=== PATIENT | male | born 1950 | race Caucasian/White ===

== ENCOUNTER 2016-06-10 11:25 | Emergency (ER) | payer BC, OTHER ==
[2016-06-10 13:39] VITALS: BP 143/85
--- NOTE | 2016-06-10 14:21 | UC ---
Throat Pain/Nasal Russell HPI - HPI Summary HPI Summary: ONE WEEK OF NASAL CONGESTION AND WORSENING COUGH, COUGHED SO MUCH HE VOMITED ONE TIME THIS MORNING. NO FEVER. - History of Current Complaint Chief Complaint: UCRespiratory Stated Complaint: COUGH Time Seen by Provider: 06/10/16 13:36 Hx Obtained From: Patient Onset/Duration: Gradual Onset, Lasting Weeks, Still Present Severity: Moderate Pain Intensity: 0 Pain Scale Used: 0-10 Numeric Cough: Nonproductive Associated Signs & Symptoms: Positive: Hoarseness, Sinus Discomfort, Nasal Discharge - Epiglottits Risk Factors Epiglottis Risk Factors: Negative - Allergies/Home Medications Allergies/Adverse Reactions: Allergies Allergy/AdvReac Type Severity Reaction Status Date / Time No Known Allergies Allergy Verified 06/10/16 13:32 Home Medications: Home Medications Pseudoephedrine-Guaifenesin [Mucinex D 60-600 mg] 1 tab PO PRN 06/10/16 [History ] PMH/Surg Hx/FS Hx/Imm Hx Previously Healthy: Yes Endocrine History Of: Reports: Thyroid Disease - HX OF HYPERTHYROIDISM - TREATED WITH RADIOACTIVE IODINE TX - NO PROBLEMS Denies: Diabetes Cardiovascular History Of: Reports: Hypertension - CONTROL WITH MEDS Denies: Cardiac Disorders Respiratory History Of: Denies: COPD, Asthma GI/ History Of: Denies: Ulcer - Surgical History Surgical History: Yes Surgery Procedure, Year, and Place: T&A A CHILD. 1972 fourth finger right hand surgery, ODALYS. 2012 UMBILICAL HERNIA REPAIR, YASMIN. Jan 2016 LEFT hand - Family History Known Family History: Positive: Cardiac Disease, Diabetes, Other - osteoarthritis both parents - Social History Occupation: Employed Full-time Lives: With Family Alcohol Use: Daily Alcohol Amount: 3-4 shots of whiskey a day Substance Use Type: None Smoking Status (MU): Never Smoked Tobacco Amount Used/How Often: 1 can every 3 days Length of Time of Smoking/Using Tobacco: started age 31 Have You Smoked in the Last Year: No - Immunization History Most Recent Influenza Vaccination: 2016 Most Recent Tetanus Shot: 07/06/2013 Most Recent Pneumonia Vaccination: NONE Review of Systems Constitutional: Negative Skin: Negative Eyes: Negative ENT: Nasal Discharge Respiratory: Cough Cardiovascular: Negative Gastrointestinal: Negative Genitourinary: Negative Motor: Negative Neurovascular: Negative Musculoskeletal: Negative Neurological: Negative Psychological: Negative All Other Systems Reviewed And Are Negative: Yes Physical Exam Triage Information Reviewed: Yes Appearance: No Pain Distress, Well-Nourished, Ill-Appearing - MILD Vital Signs: Initial Vital Signs Temp 98.5 F 06/10/16 13:33 Pulse 72 06/10/16 13:33 Resp 18 06/10/16 13:33 BP 143/85 06/10/16 13:33 Pulse Ox 100 06/10/16 13:33 Vital Signs Reviewed: Yes Eye Exam: Normal Eyes: Positive: Conjunctiva Clear ENT: Positive: Hearing grossly normal, Pharynx normal, Nasal congestion, TM bulging, TM dull Dental Exam: Normal Neck exam: Normal Neck: Positive: Supple, Nontender, No Lymphadenopathy Respiratory Exam: Other - COUGH Respiratory: Positive: Chest non-tender, Lungs clear, Normal breath sounds, No respiratory distress, No accessory muscle use Cardiovascular Exam: Normal Cardiovascular: Positive: RRR, No Murmur, Pulses Normal Abdominal Exam: Normal Musculoskeletal Exam: Normal Neurological Exam: Normal Psychological Exam: Normal Skin Exam: Normal Throat Pain/Nasal Course/Dx - Differential Dx/Diagnosis Differential Diagnosis/HQI/PQRI: Pharyngitis, Sinusitis, URI Provider Diagnoses: SINUSITIS. BRONCHITIS Discharge - Discharge Plan Condition: Stable Disposition: HOME Prescriptions: Azithromycin TAB* [Zithromax TAB (Z-JOSESITO) 250 mg #6 tabs] 250 mg PO DAILY #6 tab Benzonatate CAP* [Tessalon 100 MG CAP*] 100 mg PO TID PRN #15 cap PRN Reason: Cough Patient Education Materials: Sinusitis (ED), Acute Bronchitis (ED) Referrals: Jj Whatley NP [Primary Care Provider] -
== END 2016-06-10 13:58 | disposition home or self-care (01) ==
LOC: UCCORT 11:25
DX: J32.9 Chronic sinusitis, unspecified (principal); J40 Bronchitis, not specified as acute or chronic; I10 Essential (primary) hypertension; E05.90 Thyrotoxicosis, unspecified without thyrotoxic crisis or storm; F17.220 Nicotine dependence, chewing tobacco, uncomplicated
CPT/HCPCS: 99212; G0463

== ENCOUNTER 2017-09-22 10:24 | Emergency (ER) | payer BC, OTHER ==
[2017-09-22 12:07] VITALS: BP 131/77
--- NOTE | 2017-09-22 12:49 | UC ---
Skin Complaint HPI - HPI Summary HPI Summary: Patient is complaining of a worsening rash over the past 2 weeks. Began on his chest as a pink spots that became scaly any scratched off. Since its onset the rash has been spreading out spots that involve multiple areas of his trunk as well as his scalp. He notes the rash is mainly itchy but also little painful. He tried some topical steroid cream without any real change. He denies any associated joint pain, fever or chills, tick bite as well as any new exposures to medications. Other family does not have the rash. - History of Current Complaint Chief Complaint: UCSkin Time Seen by Provider: 09/22/17 12:23 Stated Complaint: SKIN COMPLAINT Hx Obtained From: Patient Onset/Duration: Gradual Onset Timing: Constant Pain Intensity: 0 Aggravating Factor(s): Nothing Alleviating Factor(s): Nothing Associated Signs & Symptoms: Positive: Rash - Allergy/Home Medications Allergies/Adverse Reactions: Allergies Allergy/AdvReac Type Severity Reaction Status Date / Time No Known Allergies Allergy Verified 06/10/16 13:32 Home Medications: Home Medications Biotin 1 mg PO DAILY 09/22/17 [History Confirmed 09/22/17] Review of Systems Constitutional: Negative Skin: Rash Eyes: Negative ENT: Negative Respiratory: Negative Cardiovascular: Negative Gastrointestinal: Negative Genitourinary: Negative Motor: Negative Neurovascular: Negative Musculoskeletal: Negative Neurological: Negative Psychological: Negative Is Patient Immunocompromised?: No All Other Systems Reviewed And Are Negative: Yes PMH/Surg Hx/FS Hx/Imm Hx Previously Healthy: Yes - Surgical History Surgical History: Yes Surgery Procedure, Year, and Place: T&A A CHILD. 1972 fourth finger right hand surgery, ODALYS. 2012 UMBILICAL HERNIA REPAIR, YASMIN. Jan 2016 LEFT hand - Family History Known Family History: Positive: Cardiac Disease, Diabetes, Other - osteoarthritis both parents - Social History Occupation: Employed Full-time Lives: With Family Alcohol Use: Daily Alcohol Amount: 3-4 shots of whiskey a day Substance Use Type: None Smoking Status (MU): Never Smoked Tobacco Amount Used/How Often: 1 can every 3 days Length of Time of Smoking/Using Tobacco: started age 31 Have You Smoked in the Last Year: No - Immunization History Most Recent Influenza Vaccination: 2016 Most Recent Tetanus Shot: 07/06/2013 Most Recent Pneumonia Vaccination: NONE Vaccination Up to Date: Yes Physical Exam Triage Information Reviewed: Yes Appearance: Well-Appearing Vital Signs: Initial Vital Signs Temp 98.7 F 09/22/17 12:00 Pulse 74 09/22/17 12:00 Resp 17 09/22/17 12:00 BP 131/77 09/22/17 12:00 Pulse Ox 98 09/22/17 12:00 Vital Signs Reviewed: Yes Eyes: Positive: Conjunctiva Clear ENT: Positive: Pharynx normal, TMs normal. Negative: Nasal congestion, Nasal drainage Neck: Positive: Supple, Nontender, No Lymphadenopathy Respiratory: Positive: Lungs clear, Normal breath sounds Cardiovascular: Positive: RRR, No Murmur Abdomen Description: Positive: Nontender, No Organomegaly, Soft Bowel Sounds: Positive: Present Musculoskeletal: Positive: ROM Intact Neurological: Positive: Alert Psychological: Positive: Age Appropriate Behavior Skin Exam: Normal Skin: Positive: rashes - [place] primarily oval shaped areas some with fine scale to his trunk. The same rash on the scalp has become primarily confluent and has a thick layer of scale. The rash is not of deep red or hot or tender. It is not petechial or blistering. Course/Dx - Course Course Of Treatment: Patient is nontoxic. There is no concern for infestation or bacterial component. The rash appears to be most consistent with some form of a psoriatic type rash. - Diagnoses Provider Diagnoses: Acute rash with fine scale Discharge - Sign-Out/Discharge Documenting (check all that apply): Patient Departure - Discharge Plan Condition: Stable Disposition: HOME Prescriptions: Selenium Sulfide [Anti-Dandruff] 1 % EX DAILY 14 Days #120 sha Patient Education Materials: Psoriasis (ED), Acute Rash (ED) Referrals: Eugene Powell MD [Medical Doctor] - As Soon As Possible - Billing Disposition and Condition Condition: STABLE Disposition: Home
== END 2017-09-22 13:01 | disposition home or self-care (01) ==
LOC: UCCORT 10:24
DX: R21 Rash and other nonspecific skin eruption (principal)
CPT/HCPCS: 99212; G0463

== ENCOUNTER 2018-09-03 11:00 | Inpatient (IN) | payer BC, MEDICARE, OTHER ==
[2018-10-18 12:09] LABS: ABS Basophils 0.1 10^3/ul (0-0.2); ABS Eosinophils 0.8 10^3/ul (0-0.6); ABS Lymphocytes 2.2 10^3/ul (1.0-4.8); ABS Monocytes 1.2 10^3/ul (0-0.8); ABS Neutrophils 4.5 10^3/ul (1.5-7.7); Eosinophil % 9.2 %; Hematocrit 45 % (42-52); Hemoglobin 15.5 g/dL (14.0-18.0); Lymphocyte % 25.1 %; Mean Corpuscular HGB Conc 35 g/dL (31-36); Mean Corpuscular Hemoglobin 34 pg (27-31); Mean Corpuscular Volume 98 fL (80-94); Mean Platelet Volume 7.6 fL (7.4-10.4); Platelet Count 328 10^3/uL (150-450); Red Blood Count 4.55 10^6 /uL (4.18-5.48); Red Cell Distribution Width 13 % (10-15); Urine Appearance Clear; Urine Bilirubin Negative (Negative); Urine Blood Negative (Negative); Urine Color Yellow; Urine Glucose Negative (Negative); Urine Ketones Negative (Negative); Urine Nitrite Negative (Negative); Urine Protein Negative (Negative); Urine Specific Gravity 1.006 (1.010-1.030); Urine Urobilinogen Negative (Negative); White Blood Count 8.8 10^3/uL (3.5-10.8)
[2018-10-18 12:31] LABS: Activated Partial Thrombo Time 34.4 seconds (26.0-38.0); INR 0.97 (0.82-1.09)
[2018-10-18 12:55] LABS: Albumin 4.7 g/dL (3.2-5.2); Albumin/Globulin Ratio 1.9 (1-3); BUN/Creatinine Ratio 7.7 (8-20); EGFR African American 100.9 (>60); EGFR Non-African American 83.4 (>60); Globulin 2.5 g/dL (2-4); Potassium 4.7 mmol/L (3.5-5.0); Total Bilirubin 0.6 mg/dL (0.2-1.0); Total Protein 7.2 g/dL (6.4-8.9)
--- NOTE | 2018-10-21 13:45 | HP ---
HISTORY AND PHYSICAL: DATE OF SURGERY: 10/31/18 DATE OF OFFICE VISIT: 10/18/18 SURGEON: Dr. Brooke Grace * (DICTATED BY TOMASZ STRINGER) PROCEDURE: Left total hip replacement. CHIEF COMPLAINT: Left hip pain. HISTORY OF PRESENT ILLNESS: Mr. Slade is a 67-year-old male with left hip pain. He reports that he has a 2 to 4/10 achy pain along the left groin and lateral hip. The patient has had the pain for over the last year, which is becoming more and more severe. He has increased pain with standing from sitting position , prolonged sitting, prolonged driving, and prolonged exercise. He has difficulty ambulating more than 2 blocks. He has tried home exercises, formal physical therapy, antiinflammatories, use of a cane, and intraarticular steroid injections. At this point, he has failed conservative treatment and is a candidate for a left total hip arthroplasty. PAST MEDICAL HISTORY: 1. Hypertension. 2. Hypercholesterolemia. 3. Pseudogout. 4. Osteoarthritis. 5. Hypothyroidism. PAST SURGICAL HISTORY: 1. Left small and ring finger Dupuytren's release. 2. Hernia repair. 3. Tonsillectomy. 4. Right ring finger joint replacement. MEDICATIONS: 1. Levothyroxine sodium 88 mcg 1 p.o. daily. 2. Ezetimibe 10 mg 1 p.o. daily. 3. Amlodipine besylate 5 mg 1 p.o. b.i.d. 4. Ibuprofen 200 mg up to 600 mg 3 times a day as needed for pain. 5. Indomethacin 50 mg, take 1 capsule p.o. 3 times daily with food as needed for pseudogout flare. 6. Tramadol HCl 50 mg 1 tab p.o. every 12 hours as needed for pain. ALLERGIES: LOVASTATIN and LOSARTAN, both result in rash. FAMILY HISTORY: Positive for diabetes, hypertension, cancer, rheumatoid arthritis, coronary artery disease. 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 He lives at home with his spouse. He denies any tobacco or recreational drug use. He is a former smoker. He quit 3 years ago, but he used smokeless tobacco for over 20 years. He drinks 3 alcoholic beverages per day. He is normally very active. He is right- hand dominant. REVIEW OF SYSTEMS: General: Negative for fevers, chills, night sweats, unexplained weight loss or gain. No known anesthesia problems. HEENT: Negative for headache, lightheadedness, syncopal episodes, or visual changes. Integumentary: Negative for abrasions, lesions, or open wounds. Cardiothoracic : Negative for hypertension, chest pain, palpitations, or edema. Respiratory: Positive for chronic cough. Negative for shortness of breath with exertion or wheezing. GI: Negative for nausea, vomiting, diarrhea, constipation, or GERD symptoms. : Negative for nocturia, urinary frequency, urgency, history of UTIs, or kidney problems. Musculoskeletal: Positive for left hip pain. Negative for chronic or intermittent back pain. No history of fractures. Neurologic: Negative for paresthesias, numbness, history of seizures, stroke, or poor balance. Negative for anxiety or depression. Endocrine: Positive for hypothyroidism. Negative for diabetes. Hematologic: Negative for easy bruising, anemia, bleeding disorders, history of DVT or PE. ID: Negative for history of MRSA infection, hep C, or HIV. PHYSICAL EXAMINATION GENERAL: Well-developed, well-nourished 67-year-old male, in no acute distress. Appropriate mood and affect. Appropriate dress and hygiene. VITAL SIGNS: Height 70 inches, weight 217 pounds, pulse 72, BP 138/76, respirations 12, BMI 31.1. HEENT: Normocephalic and atraumatic. PERRLA. Extraocular movements intact. Throat is clear. NECK: Supple. No palpable lymph nodes. PULMONARY: Lungs are clear to auscultation bilaterally. No wheezes, rales, or rhonchi. CARDIO: Regular rate and rhythm. S1 and S2 normal. No murmurs, rubs, or gallops. No edema. ABDOMEN: Positive bowel sounds. Soft and nontender. NEUROLOGIC: A and O x3. Cranial nerves II through XII intact. Sensation is intact to light touch. MUSCULOSKELETAL: Left lower extremity: Skin is intact. No abrasions or open wounds. There is no soft tissue swelling, erythema, or bruising. There are no palpable masses or lymph nodes. He can flex to 90 degrees of hip flexion with groin pain. He has 0 degrees of internal rotation and 30 degrees external rotation with groin pain. He has active abduction and flexion at the hip, but this causes severe pain. Distally 5/5 ankle dorsiflexion and plantar flexion strength. Full sensation to light touch intact in all nerve distributions. 2+ palpable DP pulse. DIAGNOSTIC STUDIES: Multiple views of the left hip showed advanced arthritis. There is joint space narrowing with extensive osteophyte formation, subchondral sclerosis, and subchondral cyst formation. IMPRESSION: Left hip end-stage arthritis. PLAN: The patient is scheduled to undergo a left total hip replacement on 10/[address] Grace discussed the procedure as well as the risks and benefits with the patient and he elected to proceed. He will return to the office 10 to 14 days postop for followup and suture removal. Prescription for Percocet will be prescribed for postoperative pain management upon discharge from the hospital. TOMASZ STRINGER [id number]/[facility] #: [id number] MTDD
[2018-10-30] MEDS ORDERED: Buffered Lidocaine 1% SYRIN* 1 ML/SYRINGE INTRADERM ONE (13:11)
[2018-10-31] MEDS ORDERED: Tranexamic Acid 1,000 MG in NS 0.9% 50 ML* (outpatient use) IV SCH ×2
--- OUTSIDE RECORDS SUMMARY | 2018-10-31 05:49 | XMS REPORT | Continuity of Care Document ---
:1950 External Reference #:[id number] Author Name Brooke Grace M.D. (transmitted by agent of provider Kyra Pino) Address [address] [place] [address] Care Team Providers Name Role Phone Alva Olivares, P.A. 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 Onset: 02/2018 region and thigh Contracture of palmar fascia Mike Rain MD Onset: 12/14/2015 Social History Type Date Description Comments Sex Unknown ETOH Use Currently consumes alcohol Tobacco Use Start: Unknown Patient has never smoked Smoking Status Reviewed: 10/18/18 Patient has never smoked Exercise Type/Frequency Exercises regularly Allergies, Adverse Reactions, Alerts Active Allergies Reaction Severity Comments Date Lovastatin severe rash 05/27/2018 Losartan severe rash 05/27/2018 Inactive Allergies NKDA 12/14/2015 Medications Active Medications SIG Qnty Indications Ordering Provider Date Tramadol HCL 1 tab every 12 28tabs Carmen Moyer MD 07/10/2018 50mg Tablets hours as needed for pain Levothyroxine Sodium One tab every Unknown day 88mcg Tablets Ezetimibe one tab every Alva Olivares 10mg Tablets day C., P.A. Indomethacin take 1 capsule Unknown 50mg by mouth three Capsules times a day with food if needed for Pseudo Gout Flares Amlodipine Besylate take 1 tablet by Unknown 5mg mouth twice a Tablets day In Place Of Hyzaar Ibuprofen 200 600 mg up to 3 Unknown 200mg times a day as Tablets needed for pain. Medications Administered in Office Medication SIG Qnty Indications Ordering Provider Date Triamcinolone (Kenalog) Carmen Moyer MD 07/23/2018 Injection Depomedrol 40MG Brooke Grace M.D. 06/10/2018 Injection No Injection Brooke Grace M.D. 05/27/2018 Injection Depomedrol 40MG Brooke Grace M.D. 05/27/2018 Injection Immunizations Description No Information Available Vital Signs Date Vital Result Comment 10/18/2018 9:07am Height 70 inches 5'10" Weight 217.00 lb Heart Rate 72 /min BP Systolic 138 mmHg BP Diastolic 76 mmHg Respiratory Rate 12 /min Pain Level 3 BMI (Body Mass Index) 31.1 kg/m2 09/20/2018 10:46am Height 70 inches 5'10" Weight 216.00 lb Heart Rate 78 /min BP Systolic 138 mmHg BP Diastolic 80 mmHg Body Temperature 99.1 F Pain Level 3 BMI (Body Mass Index) 31.0 kg/m2 Results Test Date Facility Test Result H/L Range Note Xray 05/27/2018 Runner Out In House Inj/Aspir Major JT Or Bursa W/ <pending> US Procedures Date Code Description Status 07/23/201823045 Inject/Drain Joint/Bursa Major W/O US Completed 06/10/2018 Inj/Aspir Major JT Or Bursa W/ US Completed 05/27/2018 Inj/Aspir Major JT Or Bursa W/ US Completed Medical Devices Description No Information Available Encounters Type Date Location Provider Dx Diagnosis Office Visit 09/20/2018 Orthopedic Carmen Moyer, S46.011A Strain of 10:30a [facility] musc/tend the rotator cuff of right shoulder, init Office Visit 09/10/2018 Orthopedic Carmen Moyer M75.41 Impingement 3:30p [facility] syndrome of right shoulder Office Visit 07/23/2018 Orth[facility] Joe Colon75.41 Impingement 3:00p [facility] syndrome of right shoulder Office Visit 06/10/2018 Orthopedic Brooke Sanjay, M25.551 Pain in right hip 8:30a [facility] M25.552 Pain in left hip M16.11 Unilateral primary osteoarthritis, right hip M16.12 Unilateral primary osteoarthritis, left hip Office Visit 05/27/2018 10:30a [facility] Brooke Grace, M25.551 Pain in right [facility] hip M25.552 Pain in left hip M16.11 Unilateral primary osteoarthritis, right hip M16.12 Unilateral primary osteoarthritis, left hip Assessments Date Code Description Provider 09/20/2018 S46.011A Strain of muscle(s) and tendon(s) of the Carmen Moyer MD rotator cuff of rig 09/10/2018 M75.41 Impingement syndrome of right shoulder Carmen Moyer MD 07/23/2018 M75.41 Impingement syndrome of right shoulder Carmen Moyer MD 06/10/2018 M25.551 Pain in right hip Brooke Grace M.D. 06/10/2018 M25.552 Pain in left hip Brooke Grace M.D. 06/10/2018 M16.11 Unilateral primary osteoarthritis, right hip Brooke Grace M.D. 06/10/2018 M16.12 Unilateral primary osteoarthritis, left hip Brooke Grace M.D. 05/27/2018 M25.551 Pain in right hip Brooke Grace M.D. 05/27/2018 M25.552 Pain in left hip Brooke Grace M.D. 05/27/2018 M16.11 Unilateral primary osteoarthritis, right hip Brooke Grace M.D. 05/27/2018 M16.12 Unilateral primary osteoarthritis, left hip Brooke Grace M.D. Plan of Treatment Future Appointment(s):11/11/2018 2:00 pm - Bro[facility]/24/2018 3:30 pm - Carm[facility] 4:15 pm - Brooke Sanjay, M.D. at [facility] Functional Status Description No Information Available Mental Status Description No Information Available Referrals Description No Information Available
--- OUTSIDE RECORDS SUMMARY | 2018-10-31 05:49 | XMS REPORT | Continuity of Care Document ---
:1950 External Reference #:[id number] Author Name Brooke Grace M.D. (transmitted by agent of provider Neema Martinez) Address [address] [place] [address] [place] [address] Care Team Providers Name Role Phone Alva Olivares, P.A. 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 Problems Active Problems Provider Date Strain of [...] Test Result H/L Range Note Xray 05/27/2018 Peoplesoft Developer In House Inj/Aspir Major JT Or Bursa W/ <pending> US Procedures Date Code Description Status 07/23/201803007 Inject/Drain Joint/Bursa Major W/O US Completed 06/10/2018 [...] Office Visit 05/27/2018 10:30a [facility] Brooke Sanjay, M25.551 Pain in right [facility] hip M25.552 Pain in left hip M16.11 Unilateral primary osteoarthritis, right hip M16.12 Unilateral primary osteoarthritis, left hip Assessments Date Code Description Provider 10/18/2018 M16.12 Unilateral primary osteoarthritis, left hip Brooke Grace M.D. 10/18/2018 M25.552 Pain in left hip Brooke Grace M.D. 09/20/2018 S46.011A Strain of muscle(s) and tendon(s) [...] Brooke Grace M.D. Plan of Treatment Future Appointment(s):10/31/2018 8:15 am - JOSE JUAN Rosa at [facility]/2018 8:15 am - Steve Mccormick PA-C at [facility]11/11/2018 2:00 pm - Brooke Grace M.D. at [facility]A.10/31/2018 8:15 am - Brooke Grace M.D. at [facility].A.10/18/2018 - Brooke Grace M.D.M16.12 Unilateral primary osteoarthritis, left hipFollow up:Follow up: 10-14 days post opM25.552 Pain in left hip Functional Status Description No Information Available Mental Status Description No Information Available Referrals Description No Information Available
--- OUTSIDE RECORDS SUMMARY | 2018-10-31 05:49 | XMS REPORT | Continuity of Care Document ---
:1950 External Reference #:[id number] Author Name Philip Ambrose M.D. (transmitted by agent of provider Jenna Avila ) Address [address] [facility] [address] [place] [address] Care Team Providers Name Role Phone Alva Olivares, P.A. 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 at [facility]/2018 3:30 pm - Carmen Moyer MD at [facility]10/31/2018 4:15 pm - Brooke Grace M.D. at [facility].10/18/2018 - Brooke Grace M.D.M16.12 Unilateral primary osteoarthritis, left hipFollow up:Follow up: 10-14 days post opM25.552 Pain in left hip Functional Status Description No Information Available Mental Status Description No Information Available Referrals Description No Information Available
[2018-10-31] MEDS ORDERED: Gabapentin CAP(*) 300 MG PO ONE (06:00)
[2018-10-31] MEDS ORDERED: celeCOXIB CAP* 200 MG PO ONE (06:00)
[2018-10-31] MEDS ORDERED: Famotidine IV* 10 MG/ML 2 ML (20 mg) IV ONE (06:00)
[2018-10-31] MEDS ORDERED: Lactated Ringers 1000 ML Bag* 1,000 ML IV SCH (06:00)
[2018-10-31] MEDS ORDERED: Dexamethasone IV* 4 MG/ML 1 ML (4 MG) IV SLOW PU ONE (06:00)
[2018-10-31] MEDS ORDERED: Dexamethasone IV* 4 MG/ML 1 ML (4 MG) ONE (06:12)
[2018-10-31] MEDS ORDERED: Buffered Lidocaine 1% SYRIN* 1 ML/SYRINGE INTRADERM ONE (06:14)
[2018-10-31] MEDS ORDERED: celeCOXIB CAP* 200 MG ONE (06:14)
[2018-10-31] MEDS ORDERED: ceFAZolin 2 GM in NS PREMIX(*) 2 GM/100 ML BAG IVPB ONE (06:15)
[2018-10-31] MEDS ORDERED: Famotidine IV* 10 MG/ML 2 ML (20 mg) ONE (06:15)
[2018-10-31] MEDS ORDERED: Bupivacaine 0.5% SDV PF* 30ML VIAL ONE (07:29)
[2018-10-31] MEDS ORDERED: fentaNYL* 50 MCG/ML 2 ML VIAL (100 MCG VIAL) ONE (07:29)
[2018-10-31] MEDS ORDERED: Propofol* 500 MG/50 ML BTL ONE (07:29)
[2018-10-31] MEDS ORDERED: Midazolam* 1 MG/ML 2 ML VIAL (2 MG) ONE (07:29)
[2018-10-31] MEDS ORDERED: ROPIVACAINE 5 MG/ML 30 ML BTL (0.5%) ONE (07:45)
[2018-10-31] MEDS ORDERED: EPHEDrine (Pressors)* 50 MG/ML VIAL ONE (08:22)
[2018-10-31] MEDS ORDERED: Acetaminophen IV 1GM/100ML * 10 MG/ML VIAL IVPB PRN (10:11)
[2018-10-31] MEDS ORDERED: Naloxone* 0.4 MG/ML 1 ML VIAL IV PRN (10:11)
[2018-10-31] MEDS ORDERED: HYDROmorphone INJ1* 1 MG/ML SYRINGE IV PRN (10:11)
[2018-10-31] MEDS ORDERED: Ondansetron ODT TAB* 4 MG PO PRN ×2 (10:11→10:56)
[2018-10-31] MEDS ORDERED: Propofol* 10 MG/ML 20 ML BTL ONE (10:23)
[2018-10-31] MEDS ORDERED: oxyCODONE/Acetamin 5/325 MG* TAB PO PRN (10:56)
[2018-10-31] MEDS ORDERED: Ondansetron INJ* 2 MG/ML VIAL IV PRN (10:56)
[2018-10-31] MEDS ORDERED: oxyCODONE TAB* 5 MG TAB PO PRN (10:56)
[2018-10-31] MEDS ORDERED: diPHENhydraMINE PO* 25 MG PO PRN (10:56)
[2018-10-31] MEDS ORDERED: Polyethylene Glycol 3350* 17 GM PACKET PO PRN (10:56)
[2018-10-31] MEDS ORDERED: traZODone TAB* 50 MG TAB PO PRN (10:56)
[2018-10-31] MEDS ORDERED: Morphine INJ* 2 MG/ML 1 ML SYRINGE (TWO MG - NEW SYRINGE VERSION) IV PRN (10:56)
[2018-10-31] MEDS ORDERED: Magnesium Hydroxide LIQ* 30 ML UDC PO PRN (10:56)
[2018-10-31] MEDS ORDERED: diPHENhydraMINE IV* 50 MG/ML 1 ml VIAL (BENADRYL) IV PRN (10:56)
[2018-10-31] MEDS ORDERED: Cyclobenzaprine TAB* 10 MG PO PRN (10:56)
[2018-10-31] MEDS: Lactated Ringers 1000 ML Bag* 1,000 ML IV SCH ×2 (12:11→22:30)
[2018-10-31] MEDS: oxyCODONE/Acetamin 5/325 MG* TAB PO PRN ×2 (12:19→16:04)
[2018-10-31] MEDS: Acetaminophen TAB* 325 MG PO SCH ×2 (12:28→21:03)
[2018-10-31] MEDS: traMADol TAB* 50 MG PO SCH ×2 (13:01→18:34)
--- NOTE | 2018-10-31 14:25 | CONSULT ---
Subjective Date of Service: 10/31/18 Family History: Unchanged from Admission Social History: Unchanged from Admission Past Medical History: Unchanged from Admission Review of Systems - Measurements Intake and Output: Intake and Output Last 24 Hours 10/29/18 10/30/18 10/31/18 11/01/18 06:59 06:59 06:59 06:59 Intake Total 900 Output Total 400 Balance 500 Weight 214 lb 6.4 oz Intake: IV Fluids 900 LR 800 NS 100ML, Cefazolin 2G 100 Output: Martins 250 Residual 150 Martins 16 Fr 150 Objective Active Medications: Acetaminophen (Ofirmev*) 1,000 mg IVPB ONCE PRN PRN Reason: PAIN - MILD Stop: 11/01/18 10:10 Acetaminophen (Tylenol Tab*) 975 mg PO Q8H [facility] Last Admin: 10/31/18 12:28 Dose: Not Given Amlodipine Besylate (Norvasc Tab*) 5 mg PO BID [facility] Apixaban (Eliquis*) 2.5 mg PO BID [facility] Bisacodyl (Dulcolax Supp*) 10 mg MA DAILY PRN PRN Reason: CONSTIPATION Cyclobenzaprine HCl (Flexeril Tab*) 10 mg PO Q6H PRN PRN Reason: SPASMS Diphenhydramine HCl (Benadryl Iv*) 25 mg IV Q6H PRN PRN Reason: PRURITIS Diphenhydramine HCl (Benadryl Po*) 25 mg PO Q6H PRN PRN Reason: PRURITIS Docusate Sodium (Colace Cap*) 100 mg PO BID [facility] Ezetimibe (Zetia Tab*) 10 mg PO QAM [facility] Hydrochlorothiazide (Hydrodiuril Tab*) 12.5 mg PO DAILY [facility] Tranexamic Acid 1,000 mg/ (Sodium Chloride) 60 mls @ 120 mls/hr IV ONCE Stop: 10/31/18 23:59 Cefazolin Sodium 1 gm/ Sodium (Chloride) 50 mls @ 200 mls/hr IVPB Q8H [facility] Stop: 11/01/18 08:44 Lactated Ringer's (Lactated Ringers 1000 Ml Bag*) 1,000 mls @ 100 mls/hr IV PER RATE [facility] Last Admin: 10/31/18 12:11 Dose: 100 mls/hr Lactulose (Lactulose*) 30 ml PO BID PRN PRN Reason: CONSTIPATION Levothyroxine Sodium (Synthroid Tab*) 88 mcg PO QAM@0600 [facility] Magnesium Hydroxide (Milk Of Magnesia Liq*) 30 ml PO BID [facility] Magnesium Hydroxide (Milk Of Magnesia Liq*) 30 ml PO Q6H PRN PRN Reason: CONSTIPATION Morphine Sulfate (Morphine Inj (Syringe))*) 2 mg IV Q4H PRN PRN Reason: Pain - Unrelieved Multivitamins (Theragran Tab*) 1 tab PO DAILY [facility] Ondansetron HCl (Zofran Inj*) 4 mg IV Q6H PRN PRN Reason: NAUSEA Ondansetron HCl (Zofran Odt Tab*) 4 mg PO Q6H PRN PRN Reason: NAUSEA Oxycodone HCl (Roxycodone Tab*) 10 mg PO Q4H PRN PRN Reason: Pain - Breakthrough Oxycodone/Acetaminophen (Percocet 5/325 Tab*) 1 tab PO Q4H PRN PRN Reason: PAIN - MODERATE Oxycodone/Acetaminophen (Percocet 5/325 Tab*) 2 tab PO Q4H PRN PRN Reason: PAIN - SEVERE Last Admin: 10/31/18 12:19 Dose: 2 tab Polyethylene Glycol/Electrolytes (Miralax*) 17 gm PO DAILY PRN PRN Reason: Constipation Tramadol HCl (Ultram*) 50 mg PO Q6H [facility] Last Admin: 10/31/18 13:01 Dose: 50 mg Trazodone HCl (Desyrel Tab*) 25 mg PO BEDTIME PRN PRN Reason: insomnia Vital Signs - 8 hr 10/31/18 10/31/18 10/31/18 06:23 10:54 10:55 Temperature 97.3 F 97.2 F Pulse Rate 76 71 67 Respiratory 18 12 13 Rate Blood Pressure 161/97 95/69 105/74 (mmHg) O2 Sat by Pulse 95 95 Oximetry 10/31/18 10/31/18 10/31/18 11:00 11:05 11:10 Temperature Pulse Rate 69 66 62 Respiratory 11 10 11 Rate Blood Pressure 112/73 113/75 (mmHg) O2 Sat by Pulse 94 95 96 Oximetry 10/31/18 10/31/18 10/31/18 11:16 11:20 11:25 Temperature Pulse Rate 67 71 65 Respiratory 16 16 17 Rate Blood Pressure 114/76 116/66 116/71 (mmHg) O2 Sat by Pulse 95 95 97 Oximetry 10/31/18 10/31/18 10/31/18 11:30 11:45 12:08 Temperature 97.3 F Pulse Rate 65 63 61 Respiratory 19 17 16 Rate Blood Pressure 119/72 120/74 132/79 (mmHg) O2 Sat by Pulse 96 94 96 Oximetry 10/31/18 10/31/18 10/31/18 12:19 12:30 12:58 Temperature 97.2 F Pulse Rate 76 Respiratory 18 18 16 Rate Blood Pressure 152/92 (mmHg) O2 Sat by Pulse 97 Oximetry 10/31/18 10/31/18 10/31/18 13:01 14:00 14:02 Temperature 97.1 F Pulse Rate 83 Respiratory 18 18 18 Rate Blood Pressure 126/79 (mmHg) O2 Sat by Pulse 95 Oximetry Oxygen Devices in Use Now: None Result Diagrams: 10/18/18 11:44 10/18/18 11:44 Microbiology and Other Data: Microbiology 10/18/18 11:44 Urine Culture - Final Urine No Growth (<1,000 CFU/mL) Assessment/Plan - Billing Plan By Medical Problem: 1. 2. VTE PPX: Diet: Code Status: Admission Status and Rationale:
--- NOTE | 2018-10-31 15:28 | CONS ---
CONSULTATION REPORT: CC: Dr. Grace; Dr. Llanes DATE OF CONSULT: 10/31/18 SURGEON: Dr. Grace. ATTENDING PHYSICIAN: Dr. Llnaes. PRIMARY CARE PHYSICIAN: The patient has no current primary care physician. CODE STATUS: Full code. SOURCE OF INFORMATION: History was taken from the patient. RELIABILITY: Good. CHIEF COMPLAINT: Left hip pain. HISTORY OF PRESENT ILLNESS: This is a 67-year-old male with past medical history that was significant for arthritis, hypertension, high cholesterol and arthritis, presented today for an elective left total hip replacement with Dr. Grace. The patient had been treated by Dr. Grace as an outpatient, but failed conservative treatment and opted for surgical intervention. He states that his pain is moderately well controlled with no other postoperative complaints. Hospital medicine has been consulted for perioperative management. Patient feels that recent outpatient blood pressure control has not been optimal due to recent changes in medications. He had been taking losartan, but developed a full body rash when the pharmacy switched manufacturers, the medication was subsequently discontinued. The patient then was then put on amlodipine and hydrochlorothiazide which he feels has not been controlling his blood pressure as well as the losartan. The patient was concerned about admission blood pressure was 160s/90s. Postoperatively, blood pressure has ranged from 110s to 150s systolically. Denies headaches or vision changes. PAST MEDICAL HISTORY: Hypertension, hypercholesterolemia, pseudogout, pseudoarthritis, and hypothyroidism. PAST SURGICAL HISTORY: Left small and ring finger Dupuytren's release, hernia repair, tonsillectomy and right ring finger joint replacement. MEDICATIONS: Include: 1. Levothyroxine sodium 88 mcg 1 p.o. daily. 2. Zetia 10 mg 1 p.o. daily. 3. Amlodipine 5 mg 1 p.o. b.i.d. 4. Ibuprofen 200 mg up to 600 mg 3 times a day as needed for pain. 5. Indomethacin 50 mg 1 capsule t.i.d. with food as needed for pseudogout flare. 6. Tramadol 50 mg 1 p.o. q.12 hours as needed for pain. ALLERGIES: To LOVASTATIN and LOSARTAN, both resulting in a rash. FAMILY HISTORY: Positive for diabetes, hypertension, cancer, rheumatoid arthritis, and coronary artery disease. 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 He lives at home with his spouse. He denies any tobacco or recreational drug use. He is a former smoker. He quit about 3 years ago, but he used smokeless tobacco for over 20 years. He drinks 3 alcoholic beverages a day. He is normally very active and is right hand dominant. REVIEW OF SYSTEMS: General: Negative for fevers, chills, night sweats, or unexplained weight loss or gain. HEENT: Negative for headaches, lightheadedness or any visual changes. Cardio: Negative for any chest pain or palpitations or edema. Respiratory: Denies shortness of breath or cough. GI: Negative for abdominal pain, nausea, vomiting, constipation, or diarrhea. : Negative for any urinary frequency, urgency, or kidney problems. Musculoskeletal: About 6/10 left hip pain, mild back pain. No history of fractures. Neurologic: Negative for any numbness or any tingling or extremity weakness. Psychiatric: Negative for anxiety or depression. Endocrine: Positive for hypothyroidism. Hematologic: Negative for any easy bruising, anemia, bleeding disorders. PHYSICAL EXAM: This is a 67-year-old patient who presented to the hospital today for an elective left total hip replacement. Hospitalist was consulted for general medical management. No acute complaints reported today. Again, denies headaches , chest pain, shortness of breath. VITALS: 97.1F, 83, 18, 95% on 2L O2, 126/79 CONSTITUTIONAL: Alert, non-toxic appearance. HEENT: Conjunctiva pink and moist. PERRLA. Normocephalic and atraumatic. RESPIRATORY: Lungs clear to auscultation bilaterally throughout on 2L oxygen via nasal cannula. No wheezes, rales, or rhonchi. CARDIO: S1S2. Heart rate regular. No gallops, murmurs or rubs appreciate. GI: Abdomen soft, non-tender, normoactive +BSx4. : Martins draining medium yellow clear urine. MUSCULOSKELETAL: Able to dorsi/plantar flex equally. 2+ pedal pulses bilaterally. Cap refill within 3 seconds. Able to move bilateral lower extremities. Abductor wedge in place. SKIN: Dressing to left lower extremity is clean, dry and intact. NEUROLOGICAL: Alert and orientedx4, no focal deficits appreciated. DATA: Chloride 100, creatinine 0.91, BUN/creatinine ratio 7.7, glucose 126, AST 40, ALT 58. Postoperative left hip x-ray showed proper placement of metal appliance. ASSESSMENT AND PLAN: 1. Left total knee replacement, day of surgery: Management is per Ortho with regards to PT/OT, bowel and pain management. Monitor H H per routine. 2. Hypertension: Blood pressures have been systolically in the 110s to 150s. Continue with amlodipine, however hydroclorothiazide will be held while patient is receiving IV fluids. Plan is to reevaluate clinical picture tomorrow and possibly restart the HCTZ. 3. Hypercholesterolemia.: Continue with Zetia. 4. Hypothyroidism: Continue with levothyroxine. 5. Code status is full. 6. DVT prophylaxis: We will continue with apixaban and sequential compression devices as per Ortho. Thank you very much for this consult. [id number]/CPS #: [id number] NANCI
[2018-10-31] MEDS: ceFAZolin 1 GM ADVAN(*) 1 GM in NS 0.9% 50 ML* 50 ML IVPB SCH (15:57)
--- NOTE | 2018-10-31 16:26 | OP ---
Operative Report - Blank - Operative Report Date of Operation: 10/31/18 Note: GRUPO JIMENES 1950 Date Of Surgery: 10/31/18 Brooke Grace MD Direct Sales Professional: Riky TOLBERT did help throughout the procedure with preparation of the hip, wound retraction, manipulation of the hip, and wound closure. Anesthesiologist: Dr. Cheatham Anesthesia Type: Spinal Preoperative Diagnosis: Left severe degenerative osteoarthritis of the hip Postoperative Diagnosis: As above Procedure Performed: Left Total Hip Arthroplasty Complications: None Specimen: Femoral head and acetabular reamings sent to pathology. Hardware used: This is uncemented Vanesa total hip arthroplasty hardware for the femur a size 7 accolade II with 127 neck femoral component, for the acetabulum a size 52E trident II tritanium cluster hole shell with 2 screws- length 15 and 20mm, for the insert a size 36E trident X3 polyethylene insert, and for the femoral head a size 36 + 2.5 ceramic biolox V40 femoral head. Brief history/Indication: GRUPO JIMENES was known in clinic and had a history of severe left hip pain. He failed conservative treatment with anti-inflammatories , pain pills, intra-articular injections and physical therapy. He elected to undergo left total hip arthroplasty due to continued pain and decreased quality of life. Radiographs showed severe end stage osteoarthritis of the hip with bone on bone contact. Informed consent was obtained from the patient. He understood the risks of surgery included but were not limited to: bleeding, infection, damage to nearby structures, intraoperative fracture, nerve palsy, failure of the hardware, early loosening, stiffness or loss of motion, dislocation, leg length discrepancy, anesthesia complications, stroke, heart attack, blood clot and . He wished to proceed. Intra-Operative findings: Intraoperatively the patient was noted to have severe loss of cartilage of the acetabulum and femoral head. Description of the Procedure: GRUPO JIMENES was identified in the preanesthesia unit. His left hip was marked as the correct operative side. Informed consent was signed and placed in the chart. The patient was taken to the operating room and placed under anesthesia without complication. A cabrera catheter was placed. The patient was placed on the peg board with all bony prominences well padded. The left lower extremity was prepped and draped in the usual sterile fashion. Preoperative time-out was made to correctly identify the patient, side and site. Appropriate intraoperative antibiotics were given within one hour of incision. A standard posterior incision was made and carried sharply down to the lateral fascia. A new 10 blade was used to make an incision in the fascia in line with the skin incision. A charnley retractor was placed. The piriformis and conjoined tendons were identified and elevated off the posterolateral femur using electrocautery. These were tagged with number 5 Ethibond. Next electrocautery was used to make a posterolateral capsular flap and this was tagged with number 5 Ethibonds. The hip was carefully dislocated. Lesser trochanter to the center of the femoral head was measured at 55 mm. The oscillating saw was used to make the femoral neck cut. The femoral head was carefully removed. The femur was retracted anteriorly and the acetabular retractors were placed. Long-handled knife was used to sharply remove any remaining labrum from the acetabular rim. The acetabulum was sequentially reamed up to a size 52. A bleeding subchondral bone bed was obtained. A trial liner was placed and had excellent fit and stability. A 52E trident II tritanium cup with 2 screws was placed and had excellent stability with appropriate anteversion and abduction angle. A size 36 E polyethylene liner was impacted into the acetabular shell. The liner was checked for stability and was stable. Next attention was turned to preparation of the femoral canal. A canal finder was used to enter the proximal femur. The femoral canal was sequentially broached up to a size 7 femoral broach trial. A trial neck and 36 + 2.5 trial femoral head was chosen. Lesser trochanter to center of the femoral head measurement was satisfactory. The hip was reduced and taken through a range of motion. The hip was stable in all positions with good soft tissue tension and appropriate leg lengths. The hip was dislocated and all trials were removed. The final implant chosen was a accolade II size 7 with 127 neck. This stem was impacted into the femoral canal without difficulty. The stem was stable with appropriate anteversion. The femoral head chosen was a 36 + 2.5 ceramic head. The head was impacted onto the femoral neck without difficulty. The final lesser trochanter to center of the femoral head measurement was satisfactory. The hip was reduced and taken through a range of motion. The hip was stable in all positions with good soft tissue tension and appropriate leg lengths. The hip was copiously irrigated with sterile saline. The previously tagged capsule and tendons were repaired to the posterolateral femur through two trochanteric drill holes. The lateral fascia layer was closed using number 1 vicryls. The rest of the incision was closed in a layered fashion using 0 and 2-0 vicryls. The skin was closed using 3-0 monocryl suture and Dermabond. Sterile adaptic, 4x4s and paper tape was used to cover the incision. The patients anesthesia was reversed without difficulty. He was taken to the PACU in stable condition. Intended weight-bearing will be as tolerated with posterior hip precautions.
--- NOTE | 2018-10-31 16:36 | PN ---
Progress Note - Progress Note Date of Service: 10/31/18 SOAP: Subjective: [Pt seen sitting in chair. States that he is doing well. Minimal pain. ] Objective: [+df/pf. NVI ] Vital Signs Temp 97.5 F 10/31/18 15:58 Pulse 83 10/31/18 15:58 Resp 18 10/31/18 16:04 BP 124/72 10/31/18 15:58 Pulse Ox 96 10/31/18 15:58 Intake & Output 10/30/18 10/31/18 10/31/18 18:59 06:59 18:59 Intake Total 900 Output Total 1400 Balance -500 Weight 214 lb 6.4 oz Intake: IV Fluids 900 LR 800 NS 100ML, Cefazolin 2G 100 Output: Martins 1250 Residual 150 Martins 16 Fr 150 Assessment: [S/P LTHA] Plan: [Continue with post op abx. Continue with pain medication Dressing change POD 2. ]
[2018-10-31] MEDS ORDERED: amLODIPine TAB* 5 MG PO SCH (21:00)
[2018-10-31] MEDS: amLODIPine TAB* 5 MG PO SCH (21:09)
[2018-10-31] MEDS: Docusate CAP* 100 MG PO SCH (21:09)
[2018-10-31] MEDS: Magnesium Hydroxide LIQ* 30 ML UDC PO SCH (21:09)
[2018-11-01] MEDS: traMADol TAB* 50 MG PO SCH ×4 (00:50→17:54)
[2018-11-01] MEDS: ceFAZolin 1 GM ADVAN(*) 1 GM in NS 0.9% 50 ML* 50 ML IVPB SCH ×2 (00:51→08:49)
[2018-11-01] MEDS: Acetaminophen TAB* 325 MG PO SCH ×3 (05:00→21:00)
[2018-11-01 06:11] LABS: Hematocrit 35 % (42-52); Hemoglobin 12.3 g/dL (14.0-18.0); Platelet Count 269 10^3/uL (150-450)
[2018-11-01 06:24] LABS: BUN/Creatinine Ratio 9.9 (8-20); Calcium 9.5 mg/dL (8.6-10.3); EGFR African American 115.4 (>60); EGFR Non-African American 95.3 (>60); Potassium 3.9 mmol/L (3.5-5.0)
[2018-11-01] MEDS: Levothyroxine TAB* 88 MCG TAB PO SCH (06:25)
[2018-11-01] MEDS: amLODIPine TAB* 5 MG PO SCH ×2 (08:52→21:42)
[2018-11-01] MEDS: Apixaban* 2.5 MG TAB PO SCH ×2 (08:52→21:42)
[2018-11-01] MEDS: Magnesium Hydroxide LIQ* 30 ML UDC PO SCH ×2 (08:53→21:43)
[2018-11-01] MEDS: Ezetimibe TAB* 10 MG PO SCH (08:53)
[2018-11-01] MEDS: Docusate CAP* 100 MG PO SCH ×2 (08:53→21:43)
[2018-11-01] MEDS: Vitamin THERAPEUTIC TAB PO SCH (08:54)
[2018-11-01] MEDS ORDERED: Hydrochlorothiazide TAB* 25 MG PO SCH (09:00)
[2018-11-01] MEDS: oxyCODONE/Acetamin 5/325 MG* TAB PO PRN (10:48)
--- NOTE | 2018-11-01 12:52 | PN ---
Progress Note - Progress Note Date of Service: 11/01/18 SOAP: Subjective: Pt seen sitting comfortably in chair. States pain when walking with PT was more than expected this AM. Pain well controlled. Denies CP, SOB, F/C. Vital Signs: Temp Pulse Resp BP Pulse Ox 98.4 F 82 16 136/72 94 11/01/18 12:14 11/01/18 12:14 11/01/18 12:14 11/01/18 12:14 11/01/18 12:14 Laboratory Last Values WBC 8.8 10^3/uL (3.5-10.8) 10/18/18 11:44 RBC 4.55 10^6 /uL (4.18-5.48) 10/18/18 11:44 Hgb 12.3 g/dL (14.0-18.0) L 11/01/18 05:49 Hct 35 % (42-52) L 11/01/18 05:49 MCV 98 fL (80-94) H 10/18/18 11:44 MCH 34 pg (27-31) H 10/18/18 11:44 MCHC 35 g/dL (31-36) 10/18/18 11:44 RDW 13 % (10-15) 10/18/18 11:44 Plt Count 269 10^3/uL (150-450) 11/01/18 05:49 MPV 8.0 fL (7.4-10.4) 11/01/18 05:49 Neut % (Auto) 51.3 % 10/18/18 11:44 Lymph % (Auto) 25.1 % 10/18/18 11:44 [place] % (Auto) 13.4 % 10/18/18 11:44 Eos % (Auto) 9.2 % 10/18/18 11:44 Baso % (Auto) 1.0 % 10/18/18 11:44 Absolute Neuts (auto) 4.5 10^3/ul (1.5-7.7) 10/18/18 11:44 Absolute Lymphs (auto) 2.2 10^3/ul (1.0-4.8) 10/18/18 11:44 Absolute Monos (auto) 1.2 10^3/ul (0-0.8) H 10/18/18 11:44 Absolute Eos (auto) 0.8 10^3/ul (0-0.6) H 10/18/18 11:44 Absolute Basos (auto) 0.1 10^3/ul (0-0.2) 10/18/18 11:44 Absolute Nucleated RBC 0.0 10^3/ul 10/18/18 11:44 Nucleated RBC % 0.0 10/18/18 11:44 INR (Anticoag Therapy) 0.97 (0.82-1.09) 10/18/18 11:44 APTT 34.4 seconds (26.0-38.0) 10/18/18 11:44 Sodium 133 mmol/L (135-145) L 11/01/18 05:49 Potassium 3.9 mmol/L (3.5-5.0) 11/01/18 05:49 Chloride 97 mmol/L (101-111) L 11/01/18 05:49 Carbon Dioxide 29 mmol/L (22-32) 11/01/18 05:49 Anion Gap 7 mmol/L (2-11) 11/01/18 05:49 BUN 8 mg/dL (6-24) 11/01/18 05:49 Creatinine 0.81 mg/dL (0.67-1.17) 11/01/18 05:49 Est GFR ( Amer) 115.4 (>60) 11/01/18 05:49 Est GFR (Non-Af Amer) 95.3 (>60) 11/01/18 05:49 BUN/Creatinine Ratio 9.9 (8-20) 11/01/18 05:49 Glucose 174 mg/dL (70-100) H 11/01/18 05:49 Calcium 9.5 mg/dL (8.6-10.3) 11/01/18 05:49 Total Bilirubin 0.60 mg/dL (0.2-1.0) 10/18/18 11:44 AST 40 U/L (13-39) H 10/18/18 11:44 ALT 58 U/L (7-52) H 10/18/18 11:44 Alkaline Phosphatase 93 U/L (34-104) 10/18/18 11:44 Total Protein 7.2 g/dL (6.4-8.9) 10/18/18 11:44 Albumin 4.7 g/dL (3.2-5.2) 10/18/18 11:44 Globulin 2.5 g/dL (2-4) 10/18/18 11:44 Albumin/Globulin Ratio 1.9 (1-3) 10/18/18 11:44 Urine Color Yellow 10/18/18 11:44 Urine Appearance Clear 10/18/18 11:44 Urine pH 6.0 (5-9) 10/18/18 11:44 Ur Specific [place] 1.006 (1.010-1.030) L 10/18/18 11:44 Urine Protein Negative (Negative) 10/18/18 11:44 Urine Ketones Negative (Negative) 10/18/18 11:44 Urine Blood Negative (Negative) 10/18/18 11:44 Urine Nitrate Negative (Negative) 10/18/18 11:44 Urine Bilirubin Negative (Negative) 10/18/18 11:44 Urine Urobilinogen Negative (Negative) 10/18/18 11:44 Ur Leukocyte Esterase Negative (Negative) 10/18/18 11:44 Urine Glucose Negative (Negative) 10/18/18 11:44 Blood Type B Positive 10/18/18 11:44 Antibody Screen Negative 10/18/18 11:44 Objective: A&O x3, NAD Dressing C/D/I, Calves soft and nontender, No edema, NVI distally. Assessment: 67 yo male s/p Left ROMEL POD #1 Plan: OOB, PT/OT WBAT Pain control DVT prophylaxis - Eliquis 2.5mg bid June D/C home today 11/01 or tomorrow 11/02
--- NOTE | 2018-11-01 16:17 | PN ---
Subjective Date of Service: 11/01/18 Interval History: Patient reported greater pain with ambulation this morning than he anticipated, with pain increasing to 7/10 during movement to left hip. Pain improves with rest and pain medication. Ambulating with one assist, walker and gait belt. Denies headaches, vision changes, chest pain, shortness of breath, palpitations , abdominal pain, nausea, or vomiting. Has voided since cabrera removal this am. No bowel movement since this admission with no reports of constipation. Family History: Unchanged from Admission Social History: Unchanged from Admission Past Medical History: Unchanged from Admission Objective Active Medications: Acetaminophen (Tylenol Tab*) 975 mg PO Q8H [facility] Last Admin: 11/01/18 13:16 Dose: 975 mg Amlodipine Besylate (Norvasc Tab*) 5 mg PO BID [facility] Last Admin: 11/01/18 08:52 Dose: 5 mg Apixaban (Eliquis*) 2.5 mg PO BID [facility] Last Admin: 11/01/18 08:52 Dose: 2.5 mg Bisacodyl (Dulcolax Supp*) 10 mg KS DAILY PRN PRN Reason: CONSTIPATION Cyclobenzaprine HCl (Flexeril Tab*) 10 mg PO Q6H PRN PRN Reason: SPASMS Diphenhydramine HCl (Benadryl Iv*) 25 mg IV Q6H PRN PRN Reason: PRURITIS Diphenhydramine HCl (Benadryl Po*) 25 mg PO Q6H PRN PRN Reason: PRURITIS Docusate Sodium (Colace Cap*) 100 mg PO BID [facility] Last Admin: 11/01/18 08:53 Dose: 100 mg Ezetimibe (Zetia Tab*) 10 mg PO QAM [facility] Last Admin: 11/01/18 08:53 Dose: 10 mg Lactated Ringer's (Lactated Ringers 1000 Ml Bag*) 1,000 mls @ 100 mls/hr IV PER RATE [facility] Last Admin: 10/31/18 22:30 Dose: 100 mls/hr Lactulose (Lactulose*) 30 ml PO BID PRN PRN Reason: CONSTIPATION Levothyroxine Sodium (Synthroid Tab*) 88 mcg PO QAM@0600 [facility] Last Admin: 11/01/18 06:25 Dose: 88 mcg Magnesium Hydroxide (Milk Of Magnesia Liq*) 30 ml PO BID [facility] Last Admin: 11/01/18 08:53 Dose: 30 ml Magnesium Hydroxide (Milk Of Magnesia Liq*) 30 ml PO Q6H PRN PRN Reason: CONSTIPATION Morphine Sulfate (Morphine Inj (Syringe))*) 2 mg IV Q4H PRN PRN Reason: Pain - Unrelieved Multivitamins (Theragran Tab*) 1 tab PO DAILY [facility] Last Admin: 11/01/18 08:54 Dose: 1 tab Ondansetron HCl (Zofran Inj*) 4 mg IV Q6H PRN PRN Reason: NAUSEA Ondansetron HCl (Zofran Odt Tab*) 4 mg PO Q6H PRN PRN Reason: NAUSEA Oxycodone HCl (Roxycodone Tab*) 10 mg PO Q4H PRN PRN Reason: Pain - Breakthrough Oxycodone/Acetaminophen (Percocet 5/325 Tab*) 1 tab PO Q4H PRN PRN Reason: PAIN - MODERATE Oxycodone/Acetaminophen (Percocet 5/325 Tab*) 2 tab PO Q4H PRN PRN Reason: PAIN - SEVERE Last Admin: 11/01/18 10:48 Dose: 2 tab Polyethylene Glycol/Electrolytes (Miralax*) 17 gm PO DAILY PRN PRN Reason: Constipation Tramadol HCl (Ultram*) 50 mg PO Q6H [facility] Last Admin: 11/01/18 13:16 Dose: 50 mg Trazodone HCl (Desyrel Tab*) 25 mg PO BEDTIME PRN PRN Reason: insomnia Vital Signs - 8 hr 11/01/18 11/01/18 11/01/18 08:49 10:48 12:14 Temperature 98.4 F Pulse Rate 82 Respiratory 18 18 16 Rate Blood Pressure 136/72 (mmHg) O2 Sat by Pulse 94 Oximetry 11/01/18 11/01/18 13:16 15:47 Temperature 99.4 F Pulse Rate 78 Respiratory 18 18 Rate Blood Pressure 123/71 (mmHg) O2 Sat by Pulse 93 Oximetry Oxygen Devices in Use Now: None Appearance: Alert, awake, non-toxic in appearance. Eyes: No Scleral Icterus, PERRLA Ears/Nose/Mouth/Throat: NL Teeth, Lips, Gums, Clear Oropharnyx, Mucous Membranes Moist Neck: NL Appearance and Movements; NL JVP, Trachea Midline Respiratory: Symmetrical Chest Expansion and Respiratory Effort, Clear to Auscultation Cardiovascular: NL Sounds; No Murmurs; No JVD, RRR, No Edema Abdominal: NL Sounds; No Tenderness; No Distention Lymphatic: No Cervical Adenopathy Extremities: No Clubbing, Cyanosis, - - 2+ non-pitting edema to left lower extremity Skin: No Rash or Ulcers Neurological: Alert and Oriented x 3, NL Sensation, NL Gait Lines/Tubes/Other Access: Clean, Dry and Intact Peripheral IV Result Diagrams: 11/02/18 05:27 11/01/18 05:49 Microbiology and Other Data: Microbiology 10/18/18 11:44 Urine Culture - Final Urine No Growth (<1,000 CFU/mL) Assess/Plan/Problems-Billing Assessment: - Patient Problems (1) Status post total replacement of left hip Status: Acute Priority: High Code(s): Z96.642 - PRESENCE OF LEFT ARTIFICIAL HIP JOINT SNOMED Code(s): 614868668086 Comment: Management per ortho with regards to PT/OT, pain and bowel management. (2) Hypertension Status: Acute Code(s): I10 - ESSENTIAL (PRIMARY) HYPERTENSION SNOMED Code(s) : 45793126 Comment: Blood pressures improved from yesterday. IV saline locked. Continue to hold hydrochlorothiazide but may continue with amlodipine. (3) Hypercholesterolemia Status: Acute Code(s): E78.00 - PURE HYPERCHOLESTEROLEMIA, UNSPECIFIED SNOMED Code(s): 85337698 Comment: Continue with Zetia (4) Hypothyroidism Status: Acute Code(s): E03.9 - HYPOTHYROIDISM, UNSPECIFIED SNOMED Code(s): 58743871 Comment: Continue with levothyroxine (5) DVT prophylaxis Status: Acute Code(s): Z29.9 - ENCOUNTER FOR PROPHYLACTIC MEASURES, UNSPECIFIED SNOMED Code(s): 138343193 Comment: Continue apixaban and SCD's per ortho. (6) Full code status Status: Acute Code(s): Z78.9 - OTHER SPECIFIED HEALTH STATUS SNOMED Code(s) : 229358811 Comment: Full code Status and Disposition: Anticipated home tomorrow, condition currently stable. Counseling and/or Coordination of Care Minutes: 30 Attending: Ashli Sinha
[2018-11-02] MEDS: traMADol TAB* 50 MG PO SCH ×3 (00:33→12:14)
[2018-11-02] MEDS: Acetaminophen TAB* 325 MG PO SCH ×2 (04:30→12:12)
[2018-11-02 05:52] LABS: Hematocrit 34 % (42-52); Hemoglobin 11.5 g/dL (14.0-18.0); Mean Platelet Volume 8.2 fL (7.4-10.4); Platelet Count 255 10^3/uL (150-450)
[2018-11-02] MEDS: Levothyroxine TAB* 88 MCG TAB PO SCH (06:13)
[2018-11-02] MEDS: oxyCODONE/Acetamin 5/325 MG* TAB PO PRN (09:47)
[2018-11-02] MEDS: Ezetimibe TAB* 10 MG PO SCH (09:48)
[2018-11-02] MEDS: Apixaban* 2.5 MG TAB PO SCH (09:48)
[2018-11-02] MEDS: Docusate CAP* 100 MG PO SCH (09:48)
[2018-11-02] MEDS: Vitamin THERAPEUTIC TAB PO SCH (09:49)
[2018-11-02] MEDS: Magnesium Hydroxide LIQ* 30 ML UDC PO SCH (09:49)
[2018-11-02] MEDS: amLODIPine TAB* 5 MG PO SCH (09:50)
--- NOTE | 2018-11-02 09:53 | DS ---
Orthopedic Discharge Summary - Discharge Summary Date of Admission:10/31/18 Date of Discharge: 11/02/18 Date of Surgery: 10/31/18 Attending Orthopedic Provider: Dr. Grace Pre-operative Diagnosis: Left hip osteoarthritis Operative Procedure: Left hip total arthroplasty Disposition of Patient: Home Condition of Patient: Stable History: GRUPO JIMENES is a 67 year old M with years of increasingly severe left hip pain. Patient has failed conservative management and has elected to undergo a left total hip replacement. Hospital Course: GRUPO was admitted to [facility] on 10/31/18. Patient underwent a left total hip replacement without complication followed by a brief recovery in PACU and transfer to the Short Stay Surgical Unit in stable condition. Our hospitalist service, physical therapy and occupational therapy also participated in this patients care. Post-op day 1: patient was alert and in no acute distress. Dressing was clean, dry and intact. Operative extremity dorsiflexion and plantarflexion intact, sensation intact to light touch distally , DP2+. Post-op day two: dressing was changed, incision was clean, dry and intact. Patient was deemed to be medically and orthopedically stable for discharge. Physical therapy goals were met. Home Medications Medication Instructions Recorded Confirmed Type Amlodipine Besylate [Norvasc] 5 mg PO BID 10/18/18 10/31/18 History Ezetimibe 10 mg PO QAM 10/18/18 10/31/18 History Ibuprofen [Ibu] 600 mg PO Q8HR 10/18/18 10/18/18 History Levothyroxine Sodium [Synthroid] 88 mcg PO QAM 10/18/18 10/31/18 History Tramadol HCl 50 mg PO Q6HR 10/18/18 10/31/18 History Hydrochlorothiazide DAILY 10/31/18 History Discharge Instructions following Orthopedic Surgery: Activity: Weight Bearing as tolerated Continue physical therapy and occupational therapy exercises as shown Hip replacements: Continue Hip Precautions- do not cross legs or bend greater than 90 degrees/squat Wound care: OK to shower on post-op day 3, no bathing, swimming, or submerging wound. Use gentle soap, pat dry. Cover with gauze, NICOLE wrap or tape. Visiting home nurse to do wound checks. Call Orthopedic office for: Increased drainage Redness Increased pain Fever Go to ER with shortness of breath or chest pain. Diet: Regular diet Increase fluids and fiber to prevent constipation. Continue to use stool softeners, call office if no bowel motion within 48 hours. Medications See Home Medication List in your packet for medications that you should take after discharge. DVT Prophylaxis: sent to [facility] in [place], [place] Eliquis Dosin.5 mg, 1 tab every 12 hours x 30 days Pain Control: sent to [facility] in [place], [place] Percocet Dosin/325 mg 1-2 tabs by mouth every 4-6 hours as needed for pain. Maximum of 10 tabs per day. Please note that Percocet contains Tylenol (acetaminophen). Maximum daily dose of Tylenol is 4000 mg from all sources. Antibiotics are required prior to any dental work. FOLLOW UP: Follow up with [Sanjay] Within 10-14 days, call for appointment Please call our office with any questions or concerns ([phone])
[2018-11-02] MEDS ORDERED: Bisacodyl SUPP* 10 MG SUPP PR PRN (10:56)
[2018-11-02 11:46] VITALS: BP 127/77
== END 2018-11-02 13:05 | disposition home health service (06) | DRG 301 ==
LOC: AA 10-31 05:44 → SSU 10-31 11:58
PROVIDERS: ADMIT Orthopaedic Surgery Adult Reconstructive Orthopaedic Surgery; ATTEND Orthopaedic Surgery Adult Reconstructive Orthopaedic Surgery
PROC: 0SRB04A Replacement of Left Hip Joint with Ceramic on Polyethylene Synthetic Substitute, Uncemented, Open Approach (ICD-10-PCS; principal; 2018-10-31 07:45)
DX: M16.12 Unilateral primary osteoarthritis, left hip (principal); I10 Essential (primary) hypertension; E78.00 Pure hypercholesterolemia, unspecified; M11.20 Other chondrocalcinosis, unspecified site; E03.9 Hypothyroidism, unspecified; M25.752 Osteophyte, left hip; E78.5 Hyperlipidemia, unspecified; E66.3 Overweight; Z96.691 Finger-joint replacement of right hand; Z88.8 Allergy status to other drugs, medicaments and biological substances; Z83.3 Family history of diabetes mellitus; Z82.49 Family history of ischemic heart disease and other diseases of the circulatory system; Z82.61 Family history of arthritis; Z87.891 Personal history of nicotine dependence; Z72.89 Other problems related to lifestyle; Z68.30 Body mass index [BMI] 30.0-30.9, adult
CPT/HCPCS: 36415; 80048; 80053; 81003; 85014; 85018; 85025; 85049; 85610; 85730; 86850; 86900; 86901; 87086; 88304; 88311; A9270-GY; C1713; C1776; G8979-GP-CI; G8980-GP-CI; G8987-GO-CJ; G8988-GO-CJ; G8989-GO-CJ; J0690; J1100; J2250; J2704; J2795; J3010; J3490

== ENCOUNTER 2022-09-07 14:26 | Observation (INO) ==
[2022-09-07 19:54] LABS: ABS Lymphocytes 0.7 10^3/uL (1.0-4.8); ABS Monocytes 0.4 10^3/uL (0.0-1.1); ABS Neutrophils 3.1 10^3/uL (1.5-7.6); ABS Nucleated RBC 0.01 10^3/ul; Eosinophil % 0.1 %; Hematocrit 40.6 % (38-53); Lymphocyte % 16.6 %; Mean Corpuscular Hemoglobin 33.8 pg (27-33); Mean Corpuscular Hgb Conc 34.6 g/dL (31-36); Mean Corpuscular Volume 97.7 fL (80-97); Mean Platelet Volume 6.4 fL (7.5-11.2); Nucleated Red Blood Cells % 0.2 /100 WBC (0.0-0.4); Platelet Count 321 10^3/uL (150-450); Red Blood Count 4.16 10^6/uL (4.06-5.63); Red Cell Distribution Width 13.8 % (12-17); White Blood Count 4.2 10^3/uL (3.6-10.2)
[2022-09-07 20:08] LABS: INR 1.08 (0.88-1.18)
[2022-09-07 20:22] LABS: Albumin 5.2 g/dL (3.2-5.2); Albumin/Globulin Ratio 1.7 (1-3); C Reactive Protein 1.98 mg/L (<8.01); Calcium 10.6 mg/dL (8.6-10.3); Creatinine, Serum 0.8 mg/dL (0.67-1.17); Globulin 3.1 g/dL (2-4); Potassium 4.2 mmol/L (3.5-5.0); Total Bilirubin 0.7 mg/dL (0.2-1.0); Total Protein 8.3 g/dL (6.4-8.9); eGFR CKD-EPI 95.2 (>60)
[2022-09-07 21:36] LABS: High Sensitivity Troponin 1 Hr 6 pg/mL (<20)
[2022-09-07] MEDS ORDERED: Iodixanol (CONTRAST) 320 MG/ML 100 ML SDV IV ONE (21:52)
[2022-09-08 01:53] LABS: Erythrocyte Sed Rate 4 mm/Hr (0-19)
[2022-09-08] MEDS ORDERED: Acetaminophen IV 1 GM/100ML 1,000 MG/100 ML BAG IV PRN (08:23)
[2022-09-08] MEDS ORDERED: NS 0.9% 500 ml BAG 500 ML IV SCH (09:00)
[2022-09-08 09:23] LABS: Hematocrit 37.6 % (38-53); Hemoglobin 13.2 g/dL (13.2-16.3); Mean Corpuscular Hemoglobin 34.4 pg (27-33); Mean Corpuscular Hgb Conc 35.3 g/dL (31-36); Mean Corpuscular Volume 97.5 fL (80-97); Mean Platelet Volume 6.5 fL (7.5-11.2); Platelet Count 281 10^3/uL (150-450); Red Blood Count 3.85 10^6/uL (4.06-5.63); Red Cell Distribution Width 13.6 % (12-17); White Blood Count 6.6 10^3/uL (3.6-10.2)
[2022-09-08 09:36] LABS: Calcium 9.9 mg/dL (8.6-10.3); Creatinine, Serum 0.92 mg/dL (0.67-1.17); eGFR CKD-EPI 89.5 (>60)
[2022-09-08 10:16] LABS: ABS Eosinophils 0.1 10^3/uL (0.0-0.5); ABS Lymphocytes 1.2 10^3/uL (1.0-4.8); ABS Monocytes 0.9 10^3/uL (0.0-1.1); ABS Neutrophils 4.4 10^3/uL (1.5-7.6); Eosinophil % 1.6 %; Lymphocyte % 17.9 %; RBC Morphology Normal (Normal)
[2022-09-08 11:17] LABS: Osmolality Serum 269 mOsm/kg (275-295)
[2022-09-08 11:22] LABS: Urine Appearance Clear; Urine Bilirubin Negative (Negative); Urine Blood Negative (Negative); Urine Color Yellow; Urine Glucose Negative (Negative); Urine Ketones Negative (Negative); Urine Nitrite Negative (Negative); Urine Protein Negative (Negative); Urine Specific Gravity 1.021 (1.002-1.030); Urine Urobilinogen Negative (Negative)
[2022-09-08 11:32] LABS: TSH Ultra Thyroid Stim Horm 3.14 mcIU/mL (0.34-5.60)
[2022-09-08 12:04] LABS: Urine Osmo 378 mOsm/kg (150-1150)
[2022-09-08 16:14] LABS: Calcium 9.1 mg/dL (8.6-10.3); Creatinine, Serum 0.75 mg/dL (0.67-1.17); Potassium 3.5 mmol/L (3.5-5.0); eGFR CKD-EPI 97.1 (>60)
[2022-09-08 16:37] VITALS: BP 139/86
[2022-09-10 17:43] LABS: Anaplasma phagocytophilum Negative (Negative); B. miyamotoi PCR, B Negative (Negative); Babesia divergens/MO-1 Negative (Negative); Babesia ducani Negative (Negative); Ehrlichia chaffeensis Negative (Negative); Ehrlichia ewingii/canis Negative (Negative); Ehrlichia muris eauclairensis Negative (Negative)
== END 2022-09-08 18:00 | disposition short-term general hospital (02) ==
LOC: ED 14:26 → EDHOLD 14:26 → SUATTDRO 09-08 00:33 → EDHOLD 09-08 17:21
PROVIDERS: ADMIT Student in an Organized Health Care Education/Training Program; ATTEND Internal Medicine